=== PATIENT | female | born 1995 | race Two or more races ===

== ENCOUNTER → 2024-10-23 | Emergency (ER) | payer OTHER ==
[~2024-10-23] VITALS: Ht 167.6 cm; Wt 67.6 kg
[~2024-10-23] MED LIST: INTEGRA F CAPS1 EACH
== END | disposition home or self-care (01) ==
LOC: ER 11:04
DX: S39.81XA Other specified injuries of abdomen, initial encounter (principal); V49.88XA Car occupant (driver) (passenger) injured in other specified transport accidents, initial encounter; Y93.89 Activity, other specified; Y92.89 Other specified places as the place of occurrence of the external cause; Y99.8 Other external cause status; Z3A.29 29 weeks gestation of pregnancy

== ENCOUNTER 2025-01-02 13:30 | Inpatient (IN) | payer OTHER ==
[~2025-01-02] VITALS: Ht 167.6 cm; Wt 2.7 kg
[2025-01-14 13:55] VITALS: BP 117/69
[2025-01-14] MEDS ORDERED: RINGERS SOLUTION,LACTATED 1,000 ML IV SCH (14:30)
[2025-01-14] MEDS ORDERED: AMPICILLIN SODIUM 2,000 MG VIAL IV ONE (14:30)
[2025-01-14] MEDS ORDERED: IRON236 MG (14:55)
[2025-01-14 15:20] LABS: BASO % 0.4 % (0.1-1.2); EOS # 0.03 (0.04-0.54); EOS % 0.4 % (0.7-7.0); LYMPH # 1.09 (1.18-3.74); LYMPH % 14.7 % (19.3-53.1); MEAN PLATELET VOLUME 10.40 fl (9.4-12.4); MONO # 0.55 (0.24-0.82); MONO % 7.4 % (4.7-12.5); NEUT # 5.67 (1.56-6.13); NEUT % 76.3 % (34.0-71.1); RED CELL DISTRIBUTION WIDTH 14.7 % (11.6-14.4)
[2025-01-14 15:24] VITALS: BP 116/58
[2025-01-14 15:38] LABS: INR < 0.93
[2025-01-14 15:45] LABS: ALT/SGPT 24.0 U/L (12-78); AST/SGOT 20.0 U/L (15-37); BILIRUBIN TOTAL 0.28 mg/dL (0.3-1.2); BUN CREA RATIO 16.0 (7.0-25.0); CREATININE SERUM 0.56 mg/dL (0.55-1.02); GFR 127.11; GLOBULINA 3.8 G/DL (2.4-3.5); GLUCOSE FASTING 71.0 mg/dL (65-100); OSMOLALITY SERUM 275.0 MOSM/KG (275-295)
[2025-01-14] MEDS ORDERED: AMPICILLIN SODIUM 1,000 MG VIAL IV SCH ×2 (16:00→17:00)
[2025-01-14] MEDS ORDERED: MISOPROSTOL 25 MCG TABLET ONE (16:21)
[2025-01-14] MEDS ORDERED: MORPHINE SULFATE 4 MG/ML CARTRIDGE IV PRN (16:45)
[2025-01-14] MEDS ORDERED: MISOPROSTOL 25 MCG TABLET VAG ONE (16:45)
[2025-01-14 19:29] VITALS: BP 119/66
[2025-01-14 23:16] VITALS: BP 109/67
[2025-01-15 03:04] VITALS: BP 114/61
[2025-01-15 07:25] VITALS: BP 118/63
[2025-01-15] MEDS ORDERED: OXYTOCIN 20 UNITS/500ML RL PIGGYBAG IV ONE (07:36)
[2025-01-15] MEDS ORDERED: OXYTOCIN 500 ML IV ONE (08:15)
[2025-01-15] MEDS ORDERED: CEFAZOLIN SODIUM 1,000 MG VIAL IV ONE (15:25)
[2025-01-15 15:28] VITALS: BP 113/76
[2025-01-15] MEDS ORDERED: CITRIC ACID/SODIUM CITRATE 30 ML BLIST.PACK PO ONE ×2 (15:28→15:44)
[2025-01-15] MEDS ORDERED: CEFAZOLIN SODIUM 1,000 MG VIAL ONE (15:44)
[2025-01-15] MEDS ORDERED: OXYTOCIN 10 UNITS/ML VIAL ONE ×2 (15:54→16:00)
[2025-01-15] MEDS ORDERED: ERYTHROMYCIN BASE OPHT 1GM EACH TUBE OP ONE ×2 (15:54→16:00)
[2025-01-15] MEDS ORDERED: MORPHINE SULFATE 4 MG/ML CARTRIDGE IV PRN (16:00)
[2025-01-15] MEDS ORDERED: RINGERS SOLUTION,LACTATED 1,000 ML IV SCH (16:15)
[2025-01-15] MEDS ORDERED: OXYTOCIN 1,000 ML IV ONE (16:15)
[2025-01-15] MEDS ORDERED: SIMETHICONE 125 MG CAPSULE PO SCH (17:00)
[2025-01-15] MEDS ORDERED: GABAPENTIN 300 MG CAPSULE PO SCH (17:00)
[2025-01-15] MEDS ORDERED: ONDANSETRON HCL 2 MG/ML VIAL IV SCH (18:00)
[2025-01-15] MEDS ORDERED: KETOROLAC TROMETHAMINE 30 MG VIAL IV SCH (18:00)
[2025-01-15] MEDS ORDERED: ACETAMINOPHEN 500 MG GEL..CAP PO SCH (18:00)
[2025-01-15] MEDS ORDERED: KETOROLAC TROMETHAMINE 30 MG VIAL ONE (18:42)
[2025-01-15 19:10] VITALS: BP 114/70
[2025-01-16 02:05] VITALS: BP 104/71
[2025-01-16 06:13] LABS: BASO % 0.2 % (0.1-1.2); EOS # 0.02 (0.04-0.54); EOS % 0.2 % (0.7-7.0); LYMPH # 1.26 (1.18-3.74); LYMPH % 9.6 % (19.3-53.1); MEAN PLATELET VOLUME 10.80 fl (9.4-12.4); MONO # 0.96 (0.24-0.82); MONO % 7.3 % (4.7-12.5); NEUT # 10.83 (1.56-6.13); NEUT % 82.2 % (34.0-71.1); RED CELL DISTRIBUTION WIDTH 14.8 % (11.6-14.4)
[2025-01-16] MEDS ORDERED: KETOROLAC TROMETHAMINE 10 MG TABLET PO SCH (08:00)
[2025-01-16] MEDS ORDERED: OxyCODONE HCL 5 MG TABLET (ROXICODONE) PO PRN (08:00)
[2025-01-16 08:08] VITALS: BP 100/64
[2025-01-16] MEDS ORDERED: DOCUSATE SODIUM 100MG CAP PO SCH (09:00)
[2025-01-16 16:00] VITALS: BP 111/71
[2025-01-17] VITALS: BP 109/70
[2025-01-17 09:07] VITALS: BP 119/77
[2025-01-17 16:28] VITALS: BP 108/71
[2025-01-18 00:14] VITALS: BP 114/73
[2025-01-18 08:00] VITALS: BP 111/75
== END 2025-01-18 19:26 | disposition home or self-care (01) | DRG 788 ==
LOC: OB/GYN 01-10 13:30 → LDR 01-14 13:36 → OB/GYN 01-14 14:40
PROVIDERS: Obstetrics & Gynecology; ADMIT Obstetrics & Gynecology Maternal & Fetal Medicine; ATTEND Obstetrics & Gynecology Maternal & Fetal Medicine
PROC: 3E0P7VZ Introduction of Hormone into Female Reproductive, Via Natural or Artificial Opening (ICD-10-PCS; 2025-01-14)
PROC: 4A1HXCZ Monitoring of Products of Conception, Cardiac Rate, External Approach (ICD-10-PCS; 2025-01-14)
PROC: 3E033VJ Introduction of Other Hormone into Peripheral Vein, Percutaneous Approach (ICD-10-PCS; 2025-01-15)
PROC: 10D00Z1 Extraction of Products of Conception, Low, Open Approach (ICD-10-PCS; principal; 2025-01-15 15:00)
DX: O36.8130 Decreased fetal movements, third trimester, not applicable or unspecified (principal); O62.1 Secondary uterine inertia; Z3A.40 40 weeks gestation of pregnancy; Z37.0 Single live birth

== ENCOUNTER 2025-01-10 08:47 | Outpatient (CLI) | payer OTHER | END 2025-01-10 09:40 | disposition home or self-care (01) | LOC: NST 08:47 | PROVIDERS: ATTEND Obstetrics & Gynecology | DX: Z34.83 Encounter for supervision of other normal pregnancy, third trimester (principal) ==